=== PATIENT | female | born 1995 | race Two or more races ===

== ENCOUNTER 2019-02-10 19:56 | Outpatient (CLI) | payer BC ==
[~2019-02-10] VITALS: Ht 157.5 cm; Wt 59.1 kg
[2019-02-10 20:11] VITALS: BP 130/71
[2019-02-10] MEDS ORDERED: PREN1TAB60 PO (21:32)
== END 2019-02-10 22:40 | disposition home or self-care (01) ==
LOC: LDOP 19:56
PROVIDERS: ATTEND Obstetrics & Gynecology
DX: Z34.93 Encounter for supervision of normal pregnancy, unspecified, third trimester (principal); Z3A.37 37 weeks gestation of pregnancy
CPT/HCPCS: 59025; 99201; G0463

== ENCOUNTER 2019-02-11 18:10 | Inpatient (IN) | payer BC ==
[~2019-02-11] VITALS: Ht 157.5 cm; Wt 60.0 kg
[~2019-02-11 18:10] MED LIST: PREN1TAB60 PO
[2019-02-11] MEDS ORDERED: OXYTOCIN 30U/ 0.9% NaCL 500ML 500 ML ONE ×2 (18:19→22:52)
[2019-02-11] MEDS ORDERED: LIDOCAINE 1%, 20ML ONE (18:19)
[2019-02-11] MEDS ORDERED: NEWBORN KIT ONE (18:19)
[2019-02-11] MEDS ORDERED: MISOPROSTOL 200 MCG TABLET ONE (18:19)
[2019-02-11] MEDS ORDERED: OXYTOCIN 30U/ 0.9% NaCL 500ML 500 ML IV ONE (18:19)
[2019-02-11] MEDS ORDERED: TERBUTALINE 1 MG/ML, 1ML SQ PRN (18:30)
[2019-02-11] MEDS ORDERED: ONDANSETRON 2MG/ML, 2ML IVPush PRN (18:30)
[2019-02-11] MEDS ORDERED: FENTANYL PF 100 MCG/2ML IVPush PRN (18:30)
[2019-02-11] MEDS ORDERED: TERBUTALINE 1 MG/ML, 1ML IVPush PRN (18:30)
[2019-02-11] MEDS: LACTATED RINGERS 1,000 ML IV SCH (18:33)
[2019-02-11 18:36] LABS: BASOPHILS # (AUTO) 0.02 x10^3/uL (0-0.1); BASOPHILS % (AUTO) 0 % (0-1); EOSINOPHILS % (AUTO) 0 % (1-7); LYMPHOCYTES # (AUTO) 1.39 x10^3/uL (1-3.4); LYMPHOCYTES % (AUTO) 9 % (22-44); MD NO; MEAN CORPUSCULAR HEMOGLOBIN 29.7 pg (27.0-34.8); MEAN CORPUSCULAR HGB CONC 33.2 g/dL (32.4-35.8); MEAN CORPUSCULAR VOLUME 89.3 fL (80-100); MONOCYTES # (AUTO) 0.57 x10^3/uL (0.2-0.8); MONOCYTES % (AUTO) 4 % (2-9); NEUTROPHILS # (AUTO) 13.15 x10^3/uL (1.8-6.8); NEUTROPHILS % (AUTO) 87 % (42-75); PLATELET COUNT 368 x10^3/uL (130-400); RED BLOOD COUNT 4.03 x10^6/uL (3.82-5.3)
[2019-02-11] MEDS: OXYTOCIN 30U/ 0.9% NaCL 500ML 500 ML IV SCH (19:32)
[2019-02-11] MEDS ORDERED: ACETAMINOPHEN 325 MG TABLET PO PRN (20:00)
[2019-02-11] MEDS ORDERED: OXYcodone/APAP 5/325MG TABLET PO PRN ×2 (20:00)
[2019-02-11] MEDS ORDERED: CARBOPROST TROMETHAMINE 250 MCG/ML, 1ML IM PRN (20:00)
[2019-02-11] MEDS ORDERED: METOCLOPRAMIDE 5 MG/ML, 2ML IV PRN (20:00)
[2019-02-11] MEDS ORDERED: GLYCERIN ADULT SUPP PR PRN (20:00)
[2019-02-11] MEDS ORDERED: ONDANSETRON 2MG/ML, 2ML IV PRN (20:00)
[2019-02-11] MEDS ORDERED: IBUPROFEN 800 MG TABLET PO PRN (20:00)
[2019-02-11] MEDS ORDERED: SIMETHICONE 80 MG CHEW TAB PO PRN (20:00)
[2019-02-11] MEDS ORDERED: BISACODYL 10 MG SUPP PR PRN (20:00)
[2019-02-11] MEDS ORDERED: DOCUSATE 100 MG CAPSULE PO PRN (20:00)
[2019-02-11] MEDS ORDERED: IBUPROFEN 600 MG TABLET PO PRN (20:00)
[2019-02-11] MEDS ORDERED: IBUPROFEN 600 MG TABLET ONE (20:56)
[2019-02-11] MEDS ORDERED: MISOPROSTOL 200 MCG TABLET PR PRN (21:00)
[2019-02-11 21:20] VITALS: BP 127/78
[2019-02-11 23:03] VITALS: BP 132/81
[2019-02-12 01:16] LABS: MEAN CORPUSCULAR HEMOGLOBIN 30.1 pg (27.0-34.8); MEAN CORPUSCULAR HGB CONC 33.4 g/dL (32.4-35.8); MEAN CORPUSCULAR VOLUME 90.1 fL (80-100); PLATELET COUNT 342 x10^3/uL (130-400); RED BLOOD COUNT 3.42 x10^6/uL (3.82-5.3); RED CELL DISTRIBUTION WIDTH 12.7 % (9.6-15.2)
[2019-02-12 01:31] LABS: BASOPHILS # (AUTO) 0.01 x10^3/uL (0-0.1); BASOPHILS % (AUTO) 0 % (0-1); EOSINOPHILS # (AUTO) 0.07 x10^3/uL (0-0.4); EOSINOPHILS % (AUTO) 0 % (1-7); LYMPHOCYTES # (AUTO) 1.71 x10^3/uL (1-3.4); LYMPHOCYTES % (AUTO) 8 % (22-44); MD SCAN; MONOCYTES # (AUTO) 0.86 x10^3/uL (0.2-0.8); MONOCYTES % (AUTO) 4 % (2-9); NEUTROPHILS % (AUTO) 88 % (42-75)
[2019-02-12] MEDS: LACTATED RINGERS 1,000 ML IV SCH (02:19)
[2019-02-12 04:28] VITALS: BP 115/73
[2019-02-12] MEDS: OXYTOCIN 30U/ 0.9% NaCL 500ML 500 ML IV SCH (06:20)
[2019-02-12 07:57] VITALS: BP 113/78
[2019-02-12] MEDS ORDERED: PRENATAL VIT/IRON/FA 1 EACH TABLET PO SCH (09:00)
[2019-02-12 12:30] VITALS: BP 116/70
[2019-02-12] MEDS ORDERED: IBUP-1222 PO (13:18)
== END 2019-02-12 18:35 | disposition home or self-care (01) | DRG 807 ==
LOC: LDOP 18:10 → LDIP 18:16 → 2NW 21:32
PROVIDERS: ADMIT Obstetrics & Gynecology; ATTEND Obstetrics & Gynecology
PROC: 10E0XZZ Delivery of Products of Conception, External Approach (ICD-10-PCS; principal; 2019-02-11)
DX: O80 Encounter for full-term uncomplicated delivery (principal); Z37.0 Single live birth; Z3A.37 37 weeks gestation of pregnancy
CPT/HCPCS: 36415; 85025; 86850; 86900; J2590; J7120; G0378